=== PATIENT | female | born 1985 ===

== ENCOUNTER 2022-02-20 14:24 | Outpatient (CLI) | payer OTHER | END 2022-02-20 14:34 | disposition home or self-care (01) | LOC: SONOGRAMA 14:24 | PROVIDERS: ATTEND Specialist | DX: R22.31 Localized swelling, mass and lump, right upper limb (principal) ==

== ENCOUNTER 2022-03-07 06:00 | Day surgery (SDC) | payer OTHER ==
[~2022-03-07] VITALS: Ht 154.9 cm; Wt 77.6 kg
[~2022-03-07 06:00] MED LIST: PLAQUENIL PO
== END 2022-03-07 12:50 | disposition home or self-care (01) ==
LOC: CIR.AMB 06:00
PROVIDERS: ATTEND Specialist
DX: R22.31 Localized swelling, mass and lump, right upper limb (principal); E11.9 Type 2 diabetes mellitus without complications; Z20.822 Contact with and (suspected) exposure to COVID-19

== ENCOUNTER 2024-01-21 15:37 | Outpatient (CLI) | payer OTHER | END 2024-01-21 15:43 | disposition home or self-care (01) | LOC: LAB 15:37 | PROVIDERS: ATTEND Specialist | DX: L02.91 Cutaneous abscess, unspecified (principal) ==